=== PATIENT | male | born 1985 | race Caucasian/White ===

== ENCOUNTER → 2021-05-04 12:19 | Outpatient (BNVA) | payer BC, SELFPAY | PROVIDERS: Referring Provider Orthopaedic Surgery; Visit Provider Anesthesiology Pain Medicine | DX: G89.29 Other chronic pain (principal); M48.062 Spinal stenosis, lumbar region with neurogenic claudication; M79.604 Pain in right leg; M79.605 Pain in left leg; F17.200 Nicotine dependence, unspecified, uncomplicated | CPT/HCPCS: 99204 ==

== ENCOUNTER → 2021-05-23 12:56 | Outpatient (BNVA) | payer BC, SELFPAY | PROVIDERS: PCP Nurse Practitioner; Visit Provider Anesthesiology Pain Medicine | DX: M51.16 Intervertebral disc disorders with radiculopathy, lumbar region (principal); M48.062 Spinal stenosis, lumbar region with neurogenic claudication | CPT/HCPCS: 62323 ==

== ENCOUNTER → 2021-06-21 11:55 | Outpatient (BNVA) | payer BC, SELFPAY | PROVIDERS: PCP Nurse Practitioner; Visit Provider Orthopaedic Surgery | DX: Z01.818 Encounter for other preprocedural examination (principal) | CPT/HCPCS: 87635 ==

== ENCOUNTER 2021-06-26 05:39 | Day surgery (SDC) | payer BC, SELFPAY ==
[2021-06-21 10:26] VITALS: BMI 44.1
--- NOTE | 2021-06-21 14:39 | ANES.PREANE2 ---
Pre-Anesthetic Assessment Pre-Anesthetic Assessment: Height/Weight: Height 1.85 m Weight 151.953 kg Proposed Procedure: Operation Date: 06/26/21 07:00 Proposed Procedures p Lumbar Spine Decompression L2/3 L3/4 L4/5 L5/S1 50707 19941(3) M48.062(Not Applicable) - Tariq H Meg, DO Was Beta Dagoberto taken within 24 hours: N/A Was Clonidine taken within 24 hours: N/A Social: Social History: Tobacco and No alcohol Exam: Pre-Anes Outpt Exam: alert, oriented x 3, clear to auscultation bilaterally and regular rate & rhythm Airway: Submandibular: WNL Cervical ROM: WNL MP: 2 Dentition: Full Pulmonary: Pulmonary: COPD CV/HEM: CV/HEM: HTN Metabolic: Metabolic: Morbid obesity Musc/skel: Musc/skel: Lower Back Pain Anesthetic Plan: ASA status: 3 Anesthesia: General Risk of > 500 ml blood loss (7ml/kg in children): No PFSH Anesthesia PFSH: Social History Second hand smoke exposure: Yes Smoking risk assessment/counseling performed?: No Alcohol intake: never Adopted: No Caregiver/support person: Yes Lives independently: No Household members: family Housing: House Marital status: Single Highest education level completed: Bachelor's Degree service: No Current occupational status: employed Current occupation: Teacher Current occupational exposures/hazards: No Pets and animals: No History of recent travel: No Current gender identity: Male Special guillermina needs: No Agree to transfusion: Yes Data Anesthesia Cardiac Studies: No Data to Display
[2021-06-26] VITALS (19 sets, daily range): BP systolic 140–178; BP diastolic 87–128; PULSE 89–112; RESP 11–24; TEMP 36.1–36.6; O2SAT 90–97
--- NOTE | 2021-06-26 | XR_ITS ---
WS: [id number] Exam: XR lumbar spine 2-3V* [id number] Date/Time of Exam: 06/26/2021 12:00 AM Reason For Exam: spinal stenosis Limited intraoperative AP and lateral images of the lower lumbar spine are submitted for evaluation. The images depict surgical retractors positioned posteriorly at the level of the L4-5 disc. No other significant finding on this limited series.
--- NOTE | 2021-06-26 | SCC_ITS ---
Procedure Done: 1. bilateral L2/3 laminectomy with partial facetectomies 2. bilateral L3/4 laminectomy with partial facetectomies 3. bilateral L4/5 laminectomy with partial facetectomies 4. bilateral L5/S1 laminectomy with partial facetectomies 8.6 seconds of fluoroscopic guidance, for a cumulative dose of 9.90 mGy, was provided to Dr. Weaver by the radiology department. C-arm images of the lumbar spine were saved for the patient's permanent record. [facility]
--- NOTE | 2021-06-26 06:39 | P.ANESUD_ITS ---
Pre-Anesthetic Update Pre-Anesthetic Assessment: Date of Surgery/Procedure: 06/26/21 Preop Emilee gnosis: Lumbar stenosis with neurogenic claudication Proposed Procedure: Operation Date: 06/26/21 07:00 Proposed Procedures p Lumbar Spine Decompression L2/3 L3/4 L4/5 L5/S1 [id number] 66233(3) M48.062(Not Applicable) - Tariq Weaver, DO Any changes to Pre-Anesthetic Assessment?: No Last Intake: Intake Last Liquid Date 06/25/21 Last Liquid Time 23:55 Last Solid Date 06/25/21 Last Solid Time 23:55 Vitals: Temperature 97.3 F L 06/26/21 06:03 Temperature Source Temporal Artery S can 06/26/21 06:03 Pulse Rate 110 H 06/26/21 06:03 Respiratory Rate 20 H 06/26/21 06:03 Blood Pressure 163/100 06/26/21 06:03 Blood Pressure Ashley n 121 06/26/21 06:03 Pulse Oximetry 96 06/26/21 06:03 Oxygen Delivery Me thod 06/26/21 06:13 Exam: Pre-Anes Outpt Exam: alert, oriented x 3, clear to auscultation bilaterally and regular rate & rhythm Cardiac Studies: No Data to Display
[2021-06-26] MEDS: sodium chloride 0.9% 1,000 ML 30 ML IV (06:48)
--- NOTE | 2021-06-26 06:53 | W.PM.OPSUD ---
Surgery/Procedure H&P Update DATE OF PROCEDURE: June 26, 2021 DATE H&P PERFORMED: 06/06/21 H&P UPDATE INFORMATION: I have reviewed H&P completed within last 30 days, I have examined patient prior to procedure and No changes to prior documentation PREOP DIAGNOSIS: Lumbar stenosis with neurogenic claudication PLANNED PROCEDURE: Operation Date: 06/26/21 07:00 Proposed Procedures p Lumbar Spine Decompression L2/3 L3/4 L4/5 L5/S1 15556 75256(3) M48.062(Not Applicable) - Tariq Weaver DO
[2021-06-26] MEDS: ceFAZolin 1,000 MG in sodium chloride 0.9% (plus) 50 ML 100 MG IV (08:00)
[2021-06-26] MEDS: vancomycin 1,000 MG SDV 2000 MG XX (08:02)
--- NOTE | 2021-06-26 09:03 | SUR.OPER ---
Family Notified Of Patient's Status Via Phone.
[2021-06-26] MEDS: acetaminophen 1,000 MG/100 ML PIGGYBACK 400 MG IV (09:14)
--- NOTE | 2021-06-26 09:55 | P.OP_ITS ---
Operative Report Date of procedure: June 26, 2021 Pre-op Diagnosis: Lumbar stenosis with neurogenic claudication Post-op diagnosis: same Procedure Done: 1. bilateral L2/3 laminectomy with partial facetectomies 2. bilateral L3/4 laminectomy with partial facetectomies 3. bilateral L4/5 laminectomy with partial facetectomies 4. bilateral L5/S1 laminectomy with partial facetectomies Surgeon: Tariq Weaver Steel Fitter: Rudolph Ruth Anesthesia: General Estimated blood loss (mL): 25 Condition: stable Disposition: PACU Procedure: 1. bilateral L2/3 laminectomy with partial facetectomies 2. bilateral L3/4 laminectomy with partial facetectomies 3. bilateral L4/5 laminectomy with partial facetectomies 4. bilateral L5/S1 laminectomy with partial facetectomies Patient is brought to the operative suite. After undergoing anesthesia they are placed in the prone position. All areas of impingement are well padded. Patient is then prepped and draped in the normal sterile fashion. A skin incision was made from L2 to S1. Subperiosteal dissection was made down after getting through the thoracolumbar fascia. The spinous process was dissected bilaterally out to the facet joints of L2-3 L3-4 L4-5 and L5-S1. Attention was brought to the L2-3 level first. A high speed elle is then used to perform the laminectomy and take down the medial aspect of the L 2/3 facet joint. A kerrison rongeure was then used to take down the remaining lamina and smooth the edged of the laminectomy up to the point where the ligamentum flavum attaches. Attention was then brought to the medial aspect of the facet joint. The remaining medial aspect of the superior and inferior aspect of the facet joint were taken down with the kerrison from the pedicle of L2 to L 3. The facet joint had significant hypertrophy. Attention was then brought to the Ligamentum Flavum. The ligament was taken down from the lamina of L2 to L3 and out medially to the remaining facet joint. The ligament was thick. The dura was then exposed. The dura was in good repair. The L2 nerve was then traced with a curette out the L2/3 foramen and found to be adequately decompressed. The L3 nerve was traced with a curette around the L3 pedicle. The lateral recess was opened with a kerrison helping to further decompress the L3 nerve. The bovie was used to take down the soft tissue on the spinous process. The high speed elle was used to take down the spinous process and then the contralateral lamina of L2. The kerrison rongeur was used to take down the remaining lamina to the point where the ligamentum flavum attached and the ligamentum flavum was taken down from L2 to L3. The kerrison rongeur was then used to reach across and take down the medial aspect of the contralateral L2/3 facet joint.The currete was used to trace the contralateral L2 nerve out the L2/ 3 foramen to make sure it was decompressed adequatesly and the L3 was traced around the L3 pedicle. The lateral recess was opened further with the kerrison to ensure the L3 is adequately decompressed. L3/4 A high speed elle is then used to perform the laminectomy and take down the medial aspect of the L 3/4 facet joint. A kerrison rongeure was then used to take down the remaining lamina and smooth the edged of the laminectomy up to the point where the ligamentum flavum attaches. Attention was then brought to the medial aspect of the facet joint. The remaining medial aspect of the superior and inferior aspect of the facet joint were taken down with the kerrison from the pedicle of L3 to L 4. The facet joint had significant hypertrophy. Attention was then brought to the Ligamentum Flavum. The ligament was taken down from the lamina of L3 to L4 and out medially to the remaining facet joint. The ligament was thick. The dura was then exposed. The dura was in good repair. The L3 nerve was then traced with a curette out the L3/4 foramen and found to be adequately decompressed. The L4 nerve was traced with a curette around the L4 pedicle. The lateral recess was opened with a kerrison helping to further decompress the L4 nerve. The bovie was used to take down the soft tissue on the spinous process. The high speed elle was used to take down the spinous process and then the contralateral lamina of L3. The kerrison rongeur was used to take down the remaining lamina to the point where the ligamentum flavum attached and the ligamentum flavum was taken down from L3 to L4. The kerrison rongeur was then used to reach across and take down the medial aspect of the contralateral L3/4 facet joint.The currete was used to trace the contralateral L3 nerve out the L3/4 foramen to make sure it was decompressed adequatesly and the L4 was traced around the L4 pedicle. The lateral recess was opened further with the kerrison to ensure the L4 is adequately decompressed. L4/5 A high speed elle is then used to perform the laminectomy and take down the medial aspect of the L 4/5 facet joint. A kerrison rongeure was then used to take down the remaining lamina and smooth the edged of the laminectomy up to the point where the ligamentum flavum attaches. Attention was then brought to the medial aspect of the facet joint. The remaining medial aspect of the superior and inferior aspect of the facet joint were taken down with the kerrison from the pedicle of L4 to L 5. The facet joint had significant hypertrophy. Attention was then brought to the Ligamentum Flavum. The ligament was taken down from the lamina of L4 to L5 and out medially to the remaining facet joint. The ligament was thick. The dura was then exposed. The dura was in good repair. The L4 nerve was then traced with a curette out the L4/5 foramen and found to be adequately decompressed. The L5 nerve was traced with a curette around the L5 pedicle. The lateral recess was opened with a kerrison helping to further decompress the L5 nerve. The bovie was used to take down the soft tissue on the spinous process. The high speed elle was used to take down the spinous process and then the contral ateral lamina of L4. The kerrison rongeur was used to take down the remaining lamina to the point where the ligamentum flavum attached and the ligamentum flavum was taken down from L4 to L5. The kerrison rongeur was then used to reach across and take down the medial aspect of the contralateral L4/5 facet joint.The currete was used to trace the contralateral L4 nerve out the L4/5 foramen to make sure it was decompressed adequatesly and the L5 was traced around the L5 pedicle. The lateral recess was opened further with the kerrison to ensure the L5 is adequately decompressed. L5/S1 A high speed elle is then used to perform the laminectomy and take down the medial aspect of the L 5/S1 facet joint. A kerrison rongeure was then used to take down the remaining lamina and smooth the edged of the laminectomy up to the point where the ligamentum flavum attaches. Attention was then brought to the medial aspect of the facet joint. The remaining medial aspect of the superior and inferior aspect of the facet joint were taken down with the kerrison from the pedicle of L5 to S1. The facet joint had significant hypertrophy. Attention was then brought to the Ligamentum Flavum. The ligament was taken down from the lamina of L5 to S1 and out medially to the remaining facet joint. The ligament was thick. The dura was then exposed. The dura was in good repair. The L5 nerve was then traced with a curette out the L5/S1 foramen and found to be adequately decompressed. The S1 nerve was traced with a curette around the S1 pedicle. The lateral recess was opened with a kerrison helping to further decompress the S1 nerve. The bovie was used to take down the soft tissue on the spinous process. The high speed elle was used to take down the spinous process and then the contralateral lamina of L5. The kerrison rongeur was used to take down the remaining lamina to the point where the ligamentum flavum attached and the ligamentum flavum was taken down from L5 to S1. The kerrison rongeur was then used to reach across and take down the medial aspect of the contralateral L5/S1 facet joint.The currete was used to trace the contralateral L5 nerve out the L5/S1 foramen to make sure it was decompressed adequatesly and the S1 was traced around the S1 pedicle. The lateral recess was opened further with the kerrison to ensure the S1 is adequately decompressed. Wound is then irrigated copiously with saline and surgiflo is used to stop any bleeding. The wound is closed with vicryl and monocryl suture in a layered fashion. Glue is then used to protect the wound. A sterile dressing is then placed. Patient was then placed in the supine position and transferred to the PACU in stable condition.
--- NOTE | 2021-06-26 11:04 | SUR.PHASEI ---
10:46 RECEIVED PATIENT. .ON O2 AT 8L/M .SCD'S ON. ST ON MONITOR. PATIENT LETHARGIC.
--- NOTE | 2021-06-26 11:08 | SUR.PHASEI ---
VENTILATING AIRBUT REMAINS LETHARGIC.
--- NOTE | 2021-06-26 11:19 | SUR.PHASEI ---
ROM ALL 4 EXTREMITIES.
--- NOTE | 2021-06-26 11:25 | SUR.PHASEI ---
TOLERATING NASAL CANULAR WELL. VENTILATING WELL.
--- NOTE | 2021-06-26 11:32 | SUR.PHASEI ---
RESPONDS APPROPRIATELY TO VERBAL COMMANDS.
--- NOTE | 2021-06-26 11:51 | SUR.PHASEI ---
FAMILY OF PATIENT CALLED AND UPDATED ON CONDITION.AIRWAY PATENT .PATIENT VENTILATING WELL.
--- NOTE | 2021-06-26 11:52 | SUR.PHASEI ---
ROM AND SENSATION ALL 4 EXTREMITIES.
[2021-06-26] MEDS: HYDROcodone-acetaminophen 5-325 mg Tablet 2 TAB PO (13:12)
== END 2021-06-26 13:35 | disposition home or self-care (01) ==
PROVIDERS: PCP Nurse Practitioner; Visit Provider Orthopaedic Surgery
PROC: (CPT 63005; principal; 2021-06-26 07:00)
DX: M48.062 Spinal stenosis, lumbar region with neurogenic claudication (principal); J44.9 Chronic obstructive pulmonary disease, unspecified; I10 Essential (primary) hypertension; E66.01 Morbid (severe) obesity due to excess calories; Z68.41 Body mass index [BMI] 40.0-44.9, adult
CPT/HCPCS: 63047; 63048 ×3; 51702; 72100; 76000; 97760; J0330; J0690; J1100; J1170; J2370; J2405; J2704; J2710; J3010; J3370; J3490; J7030; L0174